=== PATIENT | female | born 1945 ===

== ENCOUNTER 2016-10-23 12:27 | Day surgery (SDC) | payer MEDICARE, BC ==
[2016-10-23] MEDS ORDERED: TRIAMCINOLONE ACETONIDE 40 MG/ML SUS ONE (13:24)
[2016-10-23 13:51] VITALS: BP 127/85; PULSE 78; RESP 20; TEMP 98.2; O2SAT 96
== END 2016-10-23 14:05 | disposition home or self-care (01) | DRG 552 ==
LOC: SURG 12:27
PROVIDERS: ATTEND Nurse Anesthetist, Certified Registered
DX: M54.5 Low back pain (principal)
CPT/HCPCS: J3300

== ENCOUNTER 2018-10-29 10:46 | Day surgery (SDC) | payer BC ==
[2018-10-29] MEDS ORDERED: BUPIVACAINE HCL 0.25% MPF 30 ML SOL INFIL ONE (11:19)
[2018-10-29 11:32] VITALS: O2SAT 99
[2018-10-29] MEDS: DEXAMETHASONE SOD PHOS PF 10 MG/ML SOL IJ ONE ×2 (11:34→11:45)
[2018-10-29 12:00] VITALS: PULSE 78; TEMP 98.2
[2018-10-29 12:15] VITALS: BP 148/95; RESP 16
== END 2018-10-29 12:21 | disposition home or self-care (01) | DRG 552 ==
LOC: SURG 10:46
PROVIDERS: ATTEND Nurse Anesthetist, Certified Registered
DX: M51.17 Intervertebral disc disorders with radiculopathy, lumbosacral region (principal)
CPT/HCPCS: J1100